=== PATIENT | female | born 1995 | race Caucasian/White ===

== ENCOUNTER 2020-11-17 14:44 | Inpatient (IN) | payer OTHER ==
[2020-11-17 15:28] LABS: BILIRUBIN NEGATIVE (NEGATIVE); BLOOD 2+ Ery/uL (NEGATIVE); CLARITY CLEAR (CLEAR); COLOR YELLOW (YELLOW); GLUCOSE (U) NORMAL (NORMAL); LEUKOCYTES 1+ Leu/uL (NEGATIVE); NITRITE NEGATIVE (NEGATIVE); PROTEIN NEGATIVE (NEGATIVE); UROBILINOGEN 0.2 mg/dL (0.2-1.0)
[2020-11-17 15:32] LABS: BACTERIA TRACE
[2020-11-17 15:42] LABS: URINE CREATININE 34.89 mg/dL (29.00-226.00); URINE TOTAL PROTEIN-RANDOM <6.0 mg/dL (<11.9)
[2020-11-17 16:05] LABS: HCT 39.6 % (37.0-47.0); HGB 13.2 g/dl (12.5-16.0); MCHC 33.3 g/dL (32.0-36.0); MCV 95.9 fL (78.0-100.0); MPV 13.4 fL (6.0-9.5); RBC 4.13 M/uL (4.20-5.40); RDW 14.8 % (11.5-14.0); WBC 9.8 K/uL (4.0-10.5)
[2020-11-17 16:16] LABS: URIC ACID 5.7 mg/dL (2.6-6.2)
[2020-11-17 17:14] LABS: ALBUMIN 2.5 g/dL (3.4-5.0); BILIRUBIN - TOTAL 0.3 mg/dL (0.2-1.0); BUN/CREAT RATIO (CALC) 23.2 RATIO; CREATININE 0.69 mg/dL (0.51-0.95); GLOBULIN (CALCULATION) 3.6 g/dL; POTASSIUM 4.3 mmol/L (3.5-5.1); TOTAL PROTEIN 6.1 g/dL (6.4-8.2)
[2020-11-19 05:49] LABS: HCT 33.7 % (37.0-47.0); HGB 11.3 g/dl (12.5-16.0); MCH 32.3 pg (25.0-31.0); MCHC 33.5 g/dL (32.0-36.0); MCV 96.3 fL (78.0-100.0); RBC 3.5 M/uL (4.20-5.40); RDW 14.7 % (11.5-14.0); WBC 12.3 K/uL (4.0-10.5)
[2020-11-19] MEDS ORDERED: COLACE100 MG PO (10:02)
[2020-11-19] MEDS ORDERED: MOTRIN600 MG PO (10:02)
[2020-11-19] MEDS ORDERED: PRENATAL FORMU1 EACH PO (10:02)
== END 2020-11-19 15:45 | disposition home or self-care (01) | DRG 807 ==
LOC: FOD 14:44 → FOB 14:45 → FOD 17:49 → FOB 17:51
PROVIDERS: ADMIT Obstetrics & Gynecology
PROC: 10E0XZZ Delivery of Products of Conception, External Approach (ICD-10-PCS; principal; 2020-11-17)
PROC: 0KQM0ZZ Repair Perineum Muscle, Open Approach (ICD-10-PCS; 2020-11-17)
PROC: 10907ZC Drainage of Amniotic Fluid, Therapeutic from Products of Conception, Via Natural or Artificial Opening (ICD-10-PCS; 2020-11-17)
DX: O24.429 Gestational diabetes mellitus in childbirth, unspecified control (principal); Z37.0 Single live birth; Z3A.38 38 weeks gestation of pregnancy; O70.1 Second degree perineal laceration during delivery; Z20.822 Contact with and (suspected) exposure to COVID-19; O13.4 Gestational [pregnancy-induced] hypertension without significant proteinuria, complicating childbirth
CPT/HCPCS: 36415; 80053; 81001; 82009; 82570; 82962; 83615; 84156; 84550; J3430; J7120; J7121; U0002